=== PATIENT | female | born 1945 | race Caucasian/White ===

== ENCOUNTER → 2016-07-16 | Outpatient (CLI) | payer MEDICARE, OTHER ==
[~2016-07-16] MED LIST: ALBUTEROL2.5 MG/3 M IH; ALENDRONATE SOD70 MG PO; ALEVE220 M1 PO; B COMPLETE1 EACH PO; BIOTIN1000 MC1 PO; CHILDREN'S ASPI81 M1 PO; COLACE100 M1 PO; CORAL CALCIUM1 EAC2 PO; CORICIDIN HBP1 EACH PO; CVS FISH OIL 11 EAC1 PO; DITROPAN 5MG TAB5 MG PO; DOXAZOSIN MESYLA4 M1 PO; DOXAZOSIN4 MG PO; ESTRACE0.1 MG/GM VG; ESTROVEN ENERG1 EACH PO; FERROUS SULFAT325 M1 PO; FLUTICASON0.05 MG/AC NS; FUROSEMIDE20 MG PO; KETOTIFEN5 ML OU; KLOR-CON 1010 MEQ PO; LEVOTHYROXIN0.175 MG PO; LEVOTHYROXINE0.15 MG PO; LUTEIN 15 MG-0.1 SGL PO; MUCUS ER1200 MG PO; MULTIVITAMIN1 SGL PO; NAPHCON A 0.02515 ML OU; NATURE'S BOUNTY1 TAB PO; NEB INH; NORVASC 5MG5 MG/TAB PO; OXYBUTYNIN5 MG PO; RT ALBUTEROL CC18 GM IH; SIMVASTATIN20 M1 PO; SIMVASTATIN20 MG PO; TYLENOL PM EXTR1 TA1 PO; VASOTEC 5MG5 MG/TAB PO; [UNRECOGNIZED DRUG - REMARK] NAS
== END ==
LOC: MAMMO 14:39
DX: Z12.31 Encounter for screening mammogram for malignant neoplasm of breast (principal)
CPT/HCPCS: G0202

== ENCOUNTER 2016-08-12 18:15 | Emergency (ER) | payer MEDICARE ==
[~2016-08-12 18:15] MED LIST changes: -ALBUTEROL2.5 MG/3 M IH; -ALENDRONATE SOD70 MG PO; -ALEVE220 M1 PO; -B COMPLETE1 EACH PO; -BIOTIN1000 MC1 PO; -CHILDREN'S ASPI81 M1 PO; -COLACE100 M1 PO; -CORAL CALCIUM1 EAC2 PO; -CORICIDIN HBP1 EACH PO; -CVS FISH OIL 11 EAC1 PO; -DITROPAN 5MG TAB5 MG PO; -DOXAZOSIN MESYLA4 M1 PO; -ESTROVEN ENERG1 EACH PO; -FERROUS SULFAT325 M1 PO; -FLUTICASON0.05 MG/AC NS; -FUROSEMIDE20 MG PO; -KETOTIFEN5 ML OU; -KLOR-CON 1010 MEQ PO; -LUTEIN 15 MG-0.1 SGL PO; -MUCUS ER1200 MG PO; -MULTIVITAMIN1 SGL PO; -NAPHCON A 0.02515 ML OU; -NATURE'S BOUNTY1 TAB PO; -NEB INH; -NORVASC 5MG5 MG/TAB PO; -RT ALBUTEROL CC18 GM IH; -SIMVASTATIN20 M1 PO; -TYLENOL PM EXTR1 TA1 PO; -VASOTEC 5MG5 MG/TAB PO; -[UNRECOGNIZED DRUG - REMARK] NAS
[2016-08-12] MEDS ORDERED: RT ALBUTEROL CC18 GM IH (22:19)
[2016-08-12] MEDS ORDERED: ALENDRONATE SOD70 MG PO (22:19)
[2016-08-12] MEDS ORDERED: NORVASC 5MG5 MG/TAB PO (22:20)
[2016-08-12] MEDS ORDERED: CHILDREN'S ASPI81 M1 PO (22:20)
[2016-08-12] MEDS ORDERED: B COMPLETE1 EACH PO (22:20)
[2016-08-12] MEDS ORDERED: CORICIDIN HBP1 EACH PO (22:21)
[2016-08-12] MEDS ORDERED: BIOTIN1000 MC1 PO (22:21)
[2016-08-12] MEDS ORDERED: CORAL CALCIUM1 EAC2 PO (22:23)
[2016-08-12] MEDS ORDERED: NATURE'S BOUNTY1 TAB PO (22:23)
[2016-08-12] MEDS ORDERED: TYLENOL PM EXTR1 TA1 PO (22:24)
[2016-08-12] MEDS ORDERED: COLACE100 M1 PO (22:25)
[2016-08-12] MEDS ORDERED: DOXAZOSIN MESYLA4 M1 PO (22:25)
[2016-08-12] MEDS ORDERED: FERROUS SULFAT325 M1 PO (22:26)
[2016-08-12] MEDS ORDERED: FLUTICASON0.05 MG/AC NS (22:26)
[2016-08-12] MEDS ORDERED: MUCUS ER1200 MG PO (22:27)
[2016-08-12] MEDS ORDERED: LEVOTHYROXINE0.15 MG PO (22:28)
[2016-08-12] MEDS ORDERED: KETOTIFEN5 ML OU (22:28)
[2016-08-12] MEDS ORDERED: LUTEIN 15 MG-0.1 SGL PO (22:29)
[2016-08-12] MEDS ORDERED: ESTROVEN ENERG1 EACH PO (22:29)
[2016-08-12] MEDS ORDERED: NAPHCON A 0.02515 ML OU (22:30)
[2016-08-12] MEDS ORDERED: MULTIVITAMIN1 SGL PO (22:30)
[2016-08-12] MEDS ORDERED: ALEVE220 M1 PO (22:31)
[2016-08-12] MEDS ORDERED: DITROPAN 5MG TAB5 MG PO (22:32)
[2016-08-12] MEDS ORDERED: CVS FISH OIL 11 EAC1 PO (22:32)
[2016-08-12] MEDS ORDERED: SIMVASTATIN20 M1 PO (22:33)
[2016-08-12] MEDS ORDERED: [UNRECOGNIZED DRUG - REMARK] NAS (22:33)
== END 2016-08-12 21:27 | disposition other institution (70) ==
LOC: ED 18:15
DX: I50.1 Left ventricular failure, unspecified (principal); J44.9 Chronic obstructive pulmonary disease, unspecified; J45.909 Unspecified asthma, uncomplicated
CPT/HCPCS: Q9967

== ENCOUNTER 2016-08-12 20:27 | Inpatient (IN) | payer MEDICARE ==
[2016-08-12 20:27] VITALS: BP 132/75
[2016-08-12 21:04] VITALS: BP 132/75
--- NOTE | 2016-08-12 21:27 | NUR ---
PATIENT IS ADMITTED TO ACUTE FLOOR ROOM 202 AT THIS TIME. PATIENT DOES NOT APPEAR TO BE IN ANY OBVIOUS DISTRESS AT THIS TIME. PATIENT HAS A 20G IV SALINE LOCKED IN HER RAC. PATIENT DOES NOT HAVE O2 CURRENTLY. PATIENT IS EXPERIENCING DYSPNEA ON EXERTION, HOWEVER, HER O2 SATURATION REMAINS >93%. PATIENT IS ALERT, ORIENTED AND COOPERATIVE [facility] STAFF, HOWEVER, SHE CAN BE HEARD LOUDLY ARGUING WITH HER IN HER ROOM. PATIENT'S LEAVES SHORTLY AFTER. BED ALARM IS ARMED. BED RAILS UP X2. HOB ELEVATED TOA 75 DEGREE ANGLE, PER PATIENT'S REQUEST. CALL LIGHT PROVIDED WITH INSTRUCTION ON WHEN AND HOW TO USE IT. PATIENT'S INDEPENDENCE ENCOURAGED.
[2016-08-12] MEDS ORDERED: ALENDRONATE SOD70 MG PO (22:19)
[2016-08-12] MEDS ORDERED: RT ALBUTEROL CC18 GM IH (22:19)
[2016-08-12] MEDS ORDERED: NORVASC 5MG5 MG/TAB PO (22:20)
[2016-08-12] MEDS ORDERED: B COMPLETE1 EACH PO (22:20)
[2016-08-12] MEDS ORDERED: CHILDREN'S ASPI81 M1 PO (22:20)
[2016-08-12] MEDS ORDERED: CORICIDIN HBP1 EACH PO (22:21)
[2016-08-12] MEDS ORDERED: BIOTIN1000 MC1 PO (22:21)
[2016-08-12] MEDS ORDERED: NATURE'S BOUNTY1 TAB PO (22:23)
[2016-08-12] MEDS ORDERED: CORAL CALCIUM1 EAC2 PO (22:23)
[2016-08-12] MEDS ORDERED: TYLENOL PM EXTR1 TA1 PO (22:24)
[2016-08-12] MEDS ORDERED: COLACE100 M1 PO (22:25)
[2016-08-12] MEDS ORDERED: DOXAZOSIN MESYLA4 M1 PO (22:25)
[2016-08-12] MEDS ORDERED: FERROUS SULFAT325 M1 PO (22:26)
[2016-08-12] MEDS ORDERED: FLUTICASON0.05 MG/AC NS (22:26)
[2016-08-12] MEDS ORDERED: MUCUS ER1200 MG PO (22:27)
[2016-08-12] MEDS ORDERED: KETOTIFEN5 ML OU (22:28)
[2016-08-12] MEDS ORDERED: LEVOTHYROXINE0.15 MG PO (22:28)
[2016-08-12] MEDS ORDERED: ESTROVEN ENERG1 EACH PO (22:29)
[2016-08-12] MEDS ORDERED: LUTEIN 15 MG-0.1 SGL PO (22:29)
[2016-08-12] MEDS ORDERED: MULTIVITAMIN1 SGL PO (22:30)
[2016-08-12] MEDS ORDERED: NAPHCON A 0.02515 ML OU (22:30)
[2016-08-12] MEDS ORDERED: ALEVE220 M1 PO (22:31)
[2016-08-12] MEDS ORDERED: DITROPAN 5MG TAB5 MG PO (22:32)
[2016-08-12] MEDS ORDERED: CVS FISH OIL 11 EAC1 PO (22:32)
[2016-08-12] MEDS ORDERED: SIMVASTATIN20 M1 PO (22:33)
[2016-08-12] MEDS ORDERED: [UNRECOGNIZED DRUG - REMARK] NAS (22:33)
[2016-08-12 22:51] VITALS: BP 119/57
--- NOTE | 2016-08-13 00:09 | NUR ---
PATIENT RESTS QUIETLY IN BED. PATIENT DOES NOT APPEAR TO BE IN ANY OBVIOUS DISTRESS AT THIS TIME. PATIENT CHANGES HER POSITION IN BED INDEPENDENTLY THROUGHOUT THE NIGHT. BED RAILS UP X2. HOB ELVATED TO A 75 DEGREE ANGLE; PATIENT CHANGES THIS INDEPENDENTLY. BED ALARM ARMED. CLOSE MONITORING AND HOURLY ROUNDING CONTINUE.
[2016-08-13 02:32] VITALS: BP 115/55
--- NOTE | 2016-08-13 04:33 | NUR ---
PATIENT CONTINUES TO REST QUIETLY IN BED. PATIENT DOES NOT APPEAR TO BE IN ANY OBVIOUS DISTRESS. PATIENT CHANGES HER POSITION IN BED INDEPENDENTLY THROUGHOUT THE NIGHT. HOB ELEVATED TOA 45 DEGREE ANGLE; PATIENT CHANGES THIS INDEPENDENTLY. PATIENT HAS BEEN UP THROUGHOUT THE NIGHT SEVERAL TIMES TO URINATE. IV REMAINS SALINE LOCKED. PATIENT CONTINUES TO HAVE A PERSISTENT DRY COUGH. BED RAILS UP X2. BED ALARM REMAINS ARMED. CLOSE MONITORING AND HOURLY ROUNDS CONTINUE.
--- NOTE | 2016-08-13 06:06 | NUR ---
LAB CALLS THIS RN WITH A CRITICAL BNP LEVEL. THIS LAB RESULT IS PROVIDED TO MAGGIE MADRIGAL.
[2016-08-13 06:26] VITALS: BP 120/64
--- NOTE | 2016-08-13 06:54 | NUR ---
REPORT GIVEN TO ARMINDA Bhatt RN.
--- NOTE | 2016-08-13 08:00 | NUR ---
PT IN BED, FULLY ALERT AND ORIENTED, COMPLEX ASSESSMENT COMPLETED, BREATHING STABLE ON ROOM AIR, STRONG INTERMITTENT COUGH NOTED WITH NO PRODUCTION, BLE LARGE BUT MINIMAL PITTING EDEMA, PT IS LARGE IN GENERAL, LUNG SOUNDS CLEAR, REPORTS SOB WITH EXERTION, OSCAR STATES LATER TODAY PATIENT WILL AMBULATE IN DIAS AND WE CAN MONITOR HER O2 TO EVALUATE FOR HOME O2 NEEDS UPON DC, NO ACUTE CHANGES IN THE NIGHT, PT REPORTS SHE IS AMBULATORY AT HOME, NO IMMEDIATE CONCERNS NOTED, CALL LIGHT WITHIN REACH, EATING BREAKFAST INDEPENDENTLY, BED ALARM ON UPON LEAVING ROOM
[2016-08-13 11:07] VITALS: BP 109/64
--- NOTE | 2016-08-13 13:15 | NUR ---
PT AMBULATING IN [facility] WITH O2 MONITOR, O2 REMAINS 94% ON ROOM AIR THROUGHOUT WALK THROUGH HALLS, [facility]SCAR NOTIFIED, DISCUSSING DC OPTIONS WITH PATIENT AT THIS TIME
--- NOTE | 2016-08-13 13:40 | NUR ---
PT IS GOING TO STAY 1 MORE NIGHT IN HOPES TO BE ABLE TO DC TOMORROW, OSCAR IS ORDERING PO LASIX, POTASSIUM AND AN ECHOCARDIOGRAM FOR THIS EVENING, PT WILL DC ON THESE MEDICATIONS WELL AFTER DC HOME
[2016-08-13 15:16] VITALS: BP 116/69
[2016-08-13 17:56] VITALS: BP 113/65
--- NOTE | 2016-08-13 19:26 | NUR ---
Report received from Selene HERNANDEZ. Rests in bed with at bedside. A/O x4. Denies pain or shortness of breath. States does get some short of breath with ambulation but "not at all like it was". Asseessment completed. Radiology in house to to Echo. Bed alarm on. Call light in reach.
--- NOTE | 2016-08-13 19:43 | NUR ---
To Radiology Dept via W/C with Tech for Echo.
[2016-08-13 23:21] VITALS: BP 142/79
--- NOTE | 2016-08-14 01:13 | NUR ---
Rests with eyes closed. No signs of pain or distress. Calls for assist to BR PRN. Bed alarm on. Call light in reach.
[2016-08-14 02:47] VITALS: BP 144/68
--- NOTE | 2016-08-14 06:10 | NUR ---
Rested well all night. No complaints of pain. One coughing spell noted in the night. Lab in room to draw ordered labs at this time. Scheduled Synthroid taken.
[2016-08-14 06:36] VITALS: BP 124/73
--- NOTE | 2016-08-14 07:08 | NUR ---
Report to Selene HERNANDEZ.
--- NOTE | 2016-08-14 08:10 | NUR ---
PT RESTING IN BED, CALM AND COOPERATIVE WITH STAFF, FULLY ALERT AND ORIENTED, DISCUSSES POSSIBILITY OF DC TODAY BUT STATES "SHES IN NO HURRY," NO ACUTE CHANGES OVER NIGHT, ADMINISTERED PO LASIX THIS AM WITH POTASSIUM, PT WILL DC ON THIS MEDICATION, COMPLEX ASSESSMENT COMPLETED, BED ALARM ON, CALL LIGHT WITHIN REACH, PT FINISHING BREAKFAST UPON LEAVING ROOM
[2016-08-14 10:58] VITALS: BP 111/64
[2016-08-14] MEDS ORDERED: VASOTEC 5MG5 MG/TAB PO (14:08)
[2016-08-14] MEDS ORDERED: KLOR-CON 1010 MEQ PO (14:09)
[2016-08-14] MEDS ORDERED: FUROSEMIDE20 MG PO (14:10)
[2016-08-14] MEDS ORDERED: ALBUTEROL2.5 MG/3 M IH (14:12)
[2016-08-14] MEDS ORDERED: NEB INH (14:12)
[2016-08-14 14:28] VITALS: BP 149/84
--- NOTE | 2016-08-14 14:45 | NUR ---
PT DISCHARGED IN STABLE CONDITION AT THIS TIME, ALL DC PAPERWORK INCLUDING MEDICATIONS AND FOLLOW UP APPOINTMENTS REVIEWED WITH AND PATIENT, NO FURTHER QUESTIONS OR CONCERNS NOTED, ALL BELONGINGS SENT WITH PATIENT, BREATHING STABLE ON ROOM AIR UPON LEAVING, AMBULATORY WITH CANE TO BACK DOOR TO LEAVE WITH VIA POV
== END 2016-08-14 14:45 | disposition home or self-care (01) | DRG 292 ==
LOC: MED/SURG 20:27
PROVIDERS: ADMIT Nurse Practitioner Primary Care
DX: I11.0 Hypertensive heart disease with heart failure (principal); Z68.42 Body mass index [BMI] 45.0-49.9, adult; I50.21 Acute systolic (congestive) heart failure; I25.10 Atherosclerotic heart disease of native coronary artery without angina pectoris; I44.7 Left bundle-branch block, unspecified; I34.0 Nonrheumatic mitral (valve) insufficiency; J44.9 Chronic obstructive pulmonary disease, unspecified; J45.909 Unspecified asthma, uncomplicated; D64.9 Anemia, unspecified; E66.01 Morbid (severe) obesity due to excess calories; E03.9 Hypothyroidism, unspecified; E78.5 Hyperlipidemia, unspecified; R32 Unspecified urinary incontinence; F41.9 Anxiety disorder, unspecified; Z79.82 Long term (current) use of aspirin; Z96.653 Presence of artificial knee joint, bilateral
CPT/HCPCS: J1940